=== PATIENT | female | born 1980 | race Caucasian/White ===

== ENCOUNTER → 2017-07-16 | Outpatient (CLI) | payer OTHER ==
--- NOTE | 2017-07-16 15:22 | NM ---
EXAMINATION TYPE: NM hepatobiliary w EF DATE OF EXAM: 07/16/2017 COMPARISON: NONE HISTORY: Right upper quadrant pain TECHNIQUE: After the intravenous administration of 5.5 mCi Tc 99m Mebrofenin hepatobiliary scintigrap hy is performed. Immediate images post injection. FINDINGS: There is satisfactory initial accumulation of tracer by the liver. The gallbladder is visualized wit hin 8 minutes. The small bowel activity is noted within 16 minutes. At one hour 8 ounces of oral en sure plus is given to mimic CCK and gallbladder ejection fraction is calculated at 52 %, in the vilma l range. Therefore there is no scintigraphic evidence of cystic or common bile duct obstruction to s uggest acute cholecystitis or gallbladder dyskinesia. IMPRESSION: Exam is within normal limits.
== END | disposition home or self-care (01) ==
LOC: RADNMMAIN 13:03
PROVIDERS: ATTEND Family Medicine
DX: R10.11 Right upper quadrant pain (principal)
CPT/HCPCS: 78226; A9537

== ENCOUNTER 2017-12-24 11:47 | Day surgery (SDC) | payer OTHER ==
[2017-12-21 14:41] VITALS: BMI 27.3
[~2017-12-24 11:47] MED LIST: DEXAMETHASONE SOD PHOSPHATE 10 MG/ML 1 ML VIAL IV ONE; HYDROmorphone 0.5 MG/0.5 ML SYRINGE IVP PRN; LACTATED RINGERS 1,000 ML IV SCH; MIDAZOLAM 2 MG/2 ML VIAL IV PRN; ONDANSETRON 4 MG/2 ML VIAL IVP ONE; ceFAZolin IN SWFI 2 GM/20 ML SYRINGE IVP ONE
[2017-12-24] MEDS ORDERED: SCOPOLAMINE 1.5MG/72HR PATCH TRANSDERM ONE (12:28)
[2017-12-24] MEDS ORDERED: LIDOCAINE 1% 20 ML VIAL (10MG/ML) FOR IV START INTRADERMA ONE (12:28)
[2017-12-24] MEDS ORDERED: NEOSTIGMINE 1 MG/ML 10 ML VIAL ONE (13:11)
[2017-12-24] MEDS ORDERED: ROCURONIUM BROMIDE 10 MG/ML 10 ML VIAL IV ONE (13:11)
[2017-12-24] MEDS ORDERED: HYDROmorphone (PF) 1 MG/ML ONE (13:11)
[2017-12-24] MEDS ORDERED: GLYCOPYRROLATE 0.2 MG/ML 2 ML VIAL ONE (13:11)
[2017-12-24] MEDS ORDERED: LIDOCAINE 1% INJ 10MG/ML (20 ML MDV) ONE (13:11)
[2017-12-24] MEDS ORDERED: SUCCINYLCHOLINE CHLORIDE 100 MG/5 ML SYR IV ONE (13:11)
[2017-12-24] MEDS ORDERED: PROPOFOL 10 MG/ML 20 ML VIAL IV ONE (13:11)
[2017-12-24] MEDS ORDERED: MIDAZOLAM 2 MG/2 ML VIAL ONE (13:11)
[2017-12-24] MEDS ORDERED: fentaNYL (PF) 50 MCG/ML 2 ML AMP ONE (13:11)
[2017-12-24] MEDS ORDERED: LACTATED RINGERS 1,000 ML IV ONE ×2 (15:10→15:17)
--- NOTE | 2017-12-24 15:46 | FL ---
EXAMINATION TYPE: FL guidance operating room, XR foot limited RT DATE OF EXAM: 12/24/2017 CLINICAL HISTORY: Right foot fracture. TECHNIQUE: Fluoroscopy. Intraoperative limited views right foot. COMPARISON: None. FINDINGS: Fluoroscopic guidance was provided during open reduction internal fixation procedure perfo rmed by Dr. Rodriguez. A total of 12 seconds of fluoroscopic time was utilized during the procedure a nd 2 spot intraoperative fluoroscopic images are acquired. Images acquired show placement of medial fixating plate and interstitial fixating screw through base of first metatarsal extending into medial cuneiform. Satisfactory alignment is seen on intraoperative images saved. IMPRESSION: As Above.
[2017-12-24 15:58] VITALS: TEMP 97.9
--- NOTE | 2017-12-24 16:06 | P.OP ---
Date of Procedure: 12/24/17 Preoperative Diagnosis: 1. Recurrent right hallux valgus deformity with hypermobile first ray 2. Right gastrocnemius equinus contracture Postoperative Diagnosis: Same Procedure(s) Performed: 1. Correction of right hallux valgus deformity with modified Lapidus procedure 2. Right gastrocnemius recession Anesthesia: DAVID Surgeon: Bassam Rodriguez Senior Applications Developer #1: Laly Gan Estimated Blood Loss (ml): 5 IV fluids (ml): 900 Pathology: none sent Condition: stable Disposition: PACU Indications for Procedure: The patient is a previously healthy 37-year-old female with a long-standing history of problems in both of her feet. She previously underwent operative fixation of her bunions by another provider with a medial eminence resection and proximal phalanx osteotomies. She had recurrence of her deformities and ongoing pain. She came to see me to discuss treatment. We discussed continued nonsurgical treatment versus surgery. The patient had failed over 6 months of nonsurgical treatment and requested to go forward with surgery. Due to the recurrent and hypermobile nature of her bunions I recommended correction with a modified Lapidus procedure and gastroc recession. We discussed the potential risks and complications of surgery including but not limited to risk of anesthesia risk of superficial infection risk of deep infection risk of delayed wound healing risk of damage to local blood vessels or nerves risk of nonunion of the fusion site risk of malunion of the fusion site, risk of symptomatically hardware, intraoperative fracture, risk of postoperative fracture, risk of under correction of her deformity, risk of recurrence of her deformity, risk of hallux varus, risk of chronic pain, risk of chronic swelling, generalized to satisfaction of surgery, DVT, PE, other medical complications and possibly loss of life or limb. The patient voiced understanding of this and provided her verbal and written consent to go forward with surgery. Description of Procedure: The patient was identified in preoperative holding and the correct right foot was marked with my initials. I reviewed the consent form with the patient and her significant other. All their questions were answered. The patient was then brought back to the operating room. She was positioned on the or table and a general anesthetic and preoperative antibiotics were administered. A bump was placed under the right buttock internally rotating the leg to neutral. A tourniquet was applied to the proximal aspect of the right thigh. The left leg was secured to the table with foam and tape. The right leg was then prepped and draped in the standard sterile fashion. Prior to starting surgery timeout was performed identifying the correct patient, operative extremity, and procedure. The patient's leg was then elevated, exsanguinated, and the tourniquet was inflated to 250 mmHg. I began by performing a gastroc recession. A 3 cm incision was marked out over the calf 1 thumb breadth posterior to the tibia at the distal medial muscle belly of the gastrocnemius. Skin incision was made to scalpel. Dissection was carried down With subcu pain is tissue with tenotomy scissors. The superficial fascia was identified and incised longitudinally in line with the skin incision. I believe developed interval between the gastrocnemius aponeurosis and superficial fascia. The sural nerve was identified adherent to the gastrocnemius aponeurosis and was gently teased off with a [place] elevator. I then bluntly developed interval between the gastrocnemius aponeurosis and soleus fascia. Modified right angle retractors were placed isolating the gastrocnemius aponeurosis which was then sharply transected from medial to lateral. The retractors were withdrawn and the sural nerve was seen to be intact. The wound was irrigated and then closed in layers. Attention was then turned to the foot. A longitudinal incision was centered over the dorsal midfoot between the first and second tarsometatarsal joints. Skin incision was made a 15 blade scalpel. Dissection was carried down carefully through subcutaneous tissue with tenotomy scissors. The superficial sensory nerves identified proximally in the incision and carefully retracted. The EHL tendon sheath was incised and the EHL was retracted laterally. A longitudinal capsulotomy was then made centered over the first tarsometatarsal joint. K wires were then placed in the medial cuneiform and first metatarsal base and a distractor was used to open the joint. Using a combination of straight osteotomes and curettes the articular cartilage was completely removed from the first tarsometatarsal joint taking care to remove the cartilage plantarly to avoid a dorsiflexion malunion. A small wafer of bone was taken off the lateral aspect of the medial cuneiform to help with correction. Once all of the cartilage was removed the subchondral bone was perforated with a 2.0 mm drill bit to help facilitate fusion. Attention was then turned distally. A longitudinal incision was made over the medial aspect of the first MTP joint. Dissection was carried down carefully through subcutaneous tissue and a medial capsulotomy was performed. Using a Tony a small amount of medial eminence was resected. The joint was then gently distracted and a clean 15 blade scalpel was used to release the lateral capsule to help with correction of the hallux valgus deformity. At this point the 1-2 intermetatarsal angle was corrected by applying a lateral force to the distal head of the first metatarsal. An eccentric replaced K wire was placed across the joint to help hold the reduction. I then placed a 3.5 mm lag screw in a retrograde fashion across the joint. A small bur was used to create a pocket hole 1.5 cm distal to the joint and the dorsal aspect of the first metatarsal. A 3.5 mm drill bit was used to create a gliding on the first metatarsal and a 2.5 mm drill bit was used to create a threaded hole in the medial cuneiform. A fully threaded 3.5 mm screw was placed in a retrograde fashion across the joint generating excellent compression. I then proceeded to place an antegrade lag screw across the joint. A 3.5 mm drill bit was used to create a gliding hole and the medial cuneiform and a 2.5 mm drill bit was used to create a threaded hole in the first metatarsal. As the lag screw was being brought down the medial cuneiform fractured. I then with true the lag screw and inspected the joint. The retrograde screw appeared to have adequately compressed the joint with no distraction or loosening. Fluoroscopy was brought in and showed no evidence of displacement. I then elected to use a precontoured first metatarsal plate to help stabilize the fusion. The plate was placed over the dorsomedial aspect of the joint and held in place with L of tipped K wires. Nonlocking screws were placed proximally and distally into the medial cuneiform form and first metatarsal. I then placed locking screws proximally and distally. A small aspect of the medial capsule the first MTP joint was sharply incised, the joint was irrigated and a capsulorrhaphy and imbrication was performed to reduce the hallux valgus deformity. Final fluoroscopic images were taken. On the AP view the hardware appeared to be in place and the joint was adequately compressed. The 12 intermetatarsal angle was reduced and both of the sesamoids were covered by the first metatarsal head. Clinically the hallux valgus deformity was nicely corrected. Both wounds were copiously irrigated and closed in layers. I verified that all instrument, sponge, and sharp counts were correct. A sterile dressing consisting of Betadine soaked Adaptic, 4 x 4, and web roll was applied. The drapes were taken down and a well-padded bulky Stock splint was placed with the ankle at neutral. The patient was then awoken, transferred to a gurney, and brought to PACU in stable condition. Laly Gan TONNAGE COMPILATION CLERK is required is a skilled butcher assistant for patient positioning, retraction, preparation of joint surfaces, placement of hardware, closure of wounds, and placement of splint and dressing.
[2017-12-24] MEDS ORDERED: HYDROmorphone 1 MG/ML 1 ML SYRINGE IVP ONE (16:22)
[2017-12-24] MEDS ORDERED: HYDROcodone/APAP 10-325MG 1 EACH TAB PO ONE (17:03)
[2017-12-24 17:22] VITALS: BP 120/79; PULSE 59; RESP 18
--- NOTE | 2017-12-25 10:59 | P.ONQ ---
Anesthesiology Proc Note - PNB - Peripheral Nerve Block Performed Right Popliteal Single Time Out Performed: Yes Procedure Start Time: 16:24 Procedure Stop Time: 16:29 Indication: Acute Post-Operative Pain, Requested by physician Sedation Type: Sedate with meaningful contact maintained Preparation: Sterile Prep Position: Supine Needle Size: 50mm (2") Needle Gauge: 21 Technique: Ultrasound Injectate: 0.5% Ropivacaine (see comment for volume) (ropi .5% 30cc) Blood Aspirated: No Pain Paresthesia on Injection Noted: No Resistance on Injection: Normal Events: Uneventful and Well Tolerated
== END 2017-12-24 18:12 | disposition home or self-care (01) ==
LOC: OR 11:47
PROVIDERS: ATTEND Orthopaedic Surgery
DX: M20.11 Hallux valgus (acquired), right foot (principal); M62.461 Contracture of muscle, right lower leg; M20.12 Hallux valgus (acquired), left foot; M62.462 Contracture of muscle, left lower leg; K21.9 Gastro-esophageal reflux disease without esophagitis; Z87.891 Personal history of nicotine dependence
CPT/HCPCS: 27687; 28297; 73620; 64450; C1713; J2250; J1100; J2710; J2405; J2001; J3010; J1170 ×2; J0330; J2704; J0690

== ENCOUNTER → 2018-03-04 | Day surgery (SDC) | payer OTHER ==
[2018-03-02 10:00] VITALS: BMI 28.0
[~2018-03-04] MED LIST changes: +HYDROcodone/APAP 5-325MG 1 EACH TAB PO PRN; -HYDROmorphone 0.5 MG/0.5 ML SYRINGE IVP PRN; +HYDROmorphone 1 MG/ML 1 ML SYRINGE IVP ONE; +HYDROmorphone 1 MG/ML 1 ML SYRINGE IVP PRN; +KETOROLAC 30 MG/ML 1 ML VIAL ONE; +LIDOCAINE 1% 20 ML VIAL (10MG/ML) FOR IV START INTRADERMA PRN; +LIDOCAINE 1% INJ 10MG/ML (20 ML MDV) ONE; +METOCLOPRAMIDE 5 MG/ML 2 ML VIAL IVP ONE; +MIDAZOLAM 2 MG/2 ML VIAL ONE; +ONDANSETRON 4 MG/2 ML VIAL ONE; +PROPOFOL 10 MG/ML 20 ML VIAL IV ONE; +ROPIVACAINE 5 MG/ML 30 ML VIAL ONE; +SCOPOLAMINE 1.5MG/72HR PATCH TRANSDERM ONE; +fentaNYL (PF) 50 MCG/ML 2 ML AMP IV PRN; +fentaNYL (PF) 50 MCG/ML 2 ML AMP ONE
[2018-03-04 10:50] VITALS: TEMP 98.3
--- NOTE | 2018-03-04 15:09 | FL ---
Fluoroscopy INDICATION: Pain FINDINGS: Fluoroscopy time: 2 minutes 19 seconds. Images obtained: 5. IMPRESSIONS: 1. Documentation of fluoroscopy.
--- NOTE | 2018-03-04 15:29 | P.OP ---
Date of Procedure: 03/04/18 Preoperative Diagnosis: 1. Recurrent hallux valgus, right Postoperative Diagnosis: same Procedure(s) Performed: 1. Revision Lapidus procedure, right foot 2. Removal deep hardware, right foot Anesthesia: DAVID Surgeon: Bassam Rodriguez Estimated Blood Loss (ml): 10 IV fluids (ml): 1,000 Pathology: none sent Condition: stable Disposition: PACU Indications for Procedure: The patient is a previously healthy 37-year-old female was had a long-standing history of problems with both of her feet. The patient previously had bilateral bunion surgery by podiatry with recurrent deformities. She underwent a modified Lapidus procedure by myself 2 months ago. She began weightbearing prior to being released, injuring her right leg and foot. She presented for follow-up appointment and had a recurrent deformity and her x-rays showed a widened one-two intermetatarsal angle. We discussed continued observation versus revision surgery. The patient requested revision surgery. We discussed potential risks and complications of surgery including but not limited to risk of anesthesia, risk of superficial infection, risk of deep infection, risk of nonunion of the fusion site, risk of malunion of the fusion site, risk of recurrent deformity, risk of hallux varus, risk of under correction, risk of overcorrection, risk of shortening of the first metatarsal, risk of damage to local blood vessels or nerves, risk of generalized to satisfaction with surgery , risk of DVT, risk of PE, and possibly loss of life or limb. The patient voiced her understanding of all of this and provided her verbal and written consent to go forward with surgery. Description of Procedure: The patient was identified in preoperative holding and the right leg was marked with my initials. I reviewed the consent form with the patient and her . All of their questions were answered. The patient was then given a popliteal and saphenous nerve block by anesthesia. She was then brought back to the operating room positioned on an or table where general anesthetic and preoperative antibiotics were administered. The right leg was then prepped and draped in standard sterile fashion after tourniquet was applied the proximal aspect of the right leg. Prior to starting surgery timeout was performed identifying the correct patient, operative extremity, and procedure. The patient's leg was then elevated, exsanguinated with an Esmarch bandage, and the tourniquet was inflated to 250 mmHg. I began by making an incision through her scar over the dorsal aspect of the first TMT joint. Skin incision was made with a scalpel and dissection was carried down carefully to the sheath over the EHL tendon was incised longitudinally. The EHL was retracted laterally and the capsule over the plate and first TMT joint was sharply elevated. The plate and screws were removed and the lag screw outside of the plate was also removed and passed off to the back table. The fusion of the first tarsometatarsal joint appeared to be solid. A 1/4 inch straight osteotome was used to open up the fusion site. The fusion site was opened and adhesions were released. A small stab incision was made in the first webspace just lateral to the first MTP joint. A lateral release was performed of the capsule. A joystick K wire was then placed into the base of the first metatarsal 1 cm distal to the joint. Fluoroscopy was used to verify that the one-two intermetatarsal angle could be reduced and that the metatarsal head would cover the sesamoids. I then placed the fulcrum between the base of the first and second metatarsals. A small stab incision was made over the lateral aspect of the midshaft of the second metatarsal. The custom one-two intermetatarsal reduction tool was placed and tightened closing down the one-two intermetatarsal angle. A K wire was placed through the reduction tool. The joint finder was placed down the lateral aspect of the joint. The custom cutting jig was placed over the joint finder and pinned in place. A small saw was used to remove bone from the base of the first metatarsal and the medial cuneiform. The cutting jig was removed and a pin was left in the metatarsal and cuneiform. The custom distraction/compression jig was placed over the pin and the joint was distracted. Cut bone was removed. The subchondral bone was then perforated with a 2.0 mm drill bit. The K wire was removed through the one-two intermetatarsal reduction tool. The compression device was then gently tightened nicely opposing the cut surfaces. Fluoroscopy was then brought in to verify reduction of the one-two intermetatarsal angle. At this point a cannulated lag screw was placed from the lateral base of the first metatarsal into the medial cuneiform. 4 hole plates were then placed dorsolaterally and medially according to the rn document improvement's technique. Final fluoroscopic images were taken which showed reduction of the one-two intermetatarsal angle and hallux valgus angle. Hardware was in place. Bone from the cut surfaces was then morselized and placed in the screw tracks from the prior fixation. The wounds were then closed in layers. The tourniquet was let down. A sterile dressing was applied followed by a bulky Stock splint. The patient was awoken from her anesthetic, transferred to a gurney, and brought to PACU without of the procedure well.
[2018-03-04 15:34] VITALS: RESP 16
[2018-03-04 16:06] VITALS: BP 113/79; PULSE 72
--- NOTE | 2018-03-09 14:56 | CDI ---
Outpatient Documentation Clarification Form Date: 03/09/18 CDS/Otter Trawler Boatswain Name: Radha Elliott Phone: If any questions, call Cristal Hernandez Airport Location Manager at [phone] Patient Name: Tessie Liriano Admit Date: 03/04/18 Discharge Date: 03/04/18 ATTENTION: The [facility] Coding Staff appreciate your assistance in clarifying documentation. Please respond to the clarification below the line at the bottom and electronically sign. The [facility] Coding staff will review the response and follow-up if needed. Please note: Queries are made part of the Legal Health Record. If you have any questions, please contact the Airport Location Manager. Dear Dr. Rodriguez What was the purpose of the popliteal & saphenous nerve block? Was it for post- op pain management, or other? Thank you for your kind consideration. Pain management MTDD
== END | disposition home or self-care (01) ==
LOC: OR 10:11
PROVIDERS: ATTEND Orthopaedic Surgery
DX: M20.11 Hallux valgus (acquired), right foot (principal); Z91.19 Patient's noncompliance with other medical treatment and regimen; Z98.1 Arthrodesis status; E78.5 Hyperlipidemia, unspecified; E07.9 Disorder of thyroid, unspecified; K21.9 Gastro-esophageal reflux disease without esophagitis; Z79.891 Long term (current) use of opiate analgesic; Z87.891 Personal history of nicotine dependence
CPT/HCPCS: 28297; 73620; 64450; C1713; J2250; J1100; J2765; J2405; J2001; J3010; J1885; J1170; J2795; J2704

== ENCOUNTER 2018-06-01 09:29 | Day surgery (SDC) | payer OTHER ==
[2018-05-31 08:25] VITALS: BMI 28.8
[~2018-06-01 09:29] MED LIST changes: -HYDROcodone/APAP 5-325MG 1 EACH TAB PO PRN; -HYDROmorphone 1 MG/ML 1 ML SYRINGE IVP ONE; -HYDROmorphone 1 MG/ML 1 ML SYRINGE IVP PRN; -KETOROLAC 30 MG/ML 1 ML VIAL ONE; -LIDOCAINE 1% INJ 10MG/ML (20 ML MDV) ONE; -METOCLOPRAMIDE 5 MG/ML 2 ML VIAL IVP ONE; -MIDAZOLAM 2 MG/2 ML VIAL ONE; -ONDANSETRON 4 MG/2 ML VIAL ONE; -PROPOFOL 10 MG/ML 20 ML VIAL IV ONE; +Pre Op ABX Message 1 EACH MISC MISCELLANE ONE; -ROPIVACAINE 5 MG/ML 30 ML VIAL ONE; -ceFAZolin IN SWFI 2 GM/20 ML SYRINGE IVP ONE; -fentaNYL (PF) 50 MCG/ML 2 ML AMP IV PRN; -fentaNYL (PF) 50 MCG/ML 2 ML AMP ONE
[2018-06-01 11:43] VITALS: RESP 16
[2018-06-01] MEDS ORDERED: MIDAZOLAM 2 MG/2 ML VIAL IVP ONE (12:03)
[2018-06-01] MEDS ORDERED: fentaNYL (PF) 50 MCG/ML 2 ML AMP IVP ONE ×2 (12:03→12:12)
[2018-06-01] MEDS ORDERED: ceFAZolin IN SWFI 2 GM/20 ML SYRINGE IVP ONE (12:15)
--- NOTE | 2018-06-01 12:30 | P.ONQ ---
Anesthesiology Proc Note - PNB - Peripheral Nerve Block Performed Left Saphenous/Obturator Single Procedure Start Time: 12:02 Procedure Stop Time: 12:10 Indication: Analgesia, Requested by physician Specifically requested for management of pain by DrAileen: Bassam Rodriguez Sedation Type: Sedate with meaningful contact maintained Preparation: Sterile Prep Position: Supine Needle Size: 100mm (4") Needle Gauge: 21 Technique: Ultrasound (Ropivacaine 0.375) Injectate: Other (see comment) (0.375 % 20 ml) Blood Aspirated: No Pain Paresthesia on Injection Noted: No Resistance on Injection: Normal Events: Uneventful and Well Tolerated
--- NOTE | 2018-06-01 12:31 | P.ONQ ---
Anesthesiology Proc Note - PNB - Peripheral Nerve Block Performed Left Popliteal Single Procedure Start Time: 12:10 Procedure Stop Time: 12:20 Indication: Analgesia, Requested by physician Specifically requested for management of pain by DrAileen: Bassam Rodriguez Sedation Type: Sedate with meaningful contact maintained Preparation: Sterile Prep Needle Types: On-Q Needle Size: 100mm (4") Needle Gauge: 21 Technique: Ultrasound (Ropivacaine 0.375 % 20 ml) Blood Aspirated: No Pain Paresthesia on Injection Noted: No Resistance on Injection: Normal Events: Uneventful and Well Tolerated
[2018-06-01] MEDS ORDERED: ALBUTEROL INHALER 60 PUFF/8 GM INHALER INHALATION ONE (13:44)
[2018-06-01] MEDS ORDERED: MIDAZOLAM 2 MG/2 ML VIAL ONE (13:44)
[2018-06-01] MEDS ORDERED: LIDOCAINE 1% INJ 10MG/ML (20 ML MDV) ONE (13:44)
[2018-06-01] MEDS ORDERED: fentaNYL (PF) 50 MCG/ML 2 ML AMP ONE (13:44)
[2018-06-01] MEDS ORDERED: HYDROmorphone (PF) 1 MG/ML ONE (13:44)
[2018-06-01] MEDS ORDERED: ePHEDrine 50 MG/ML 1 ML AMP ONE (13:44)
[2018-06-01] MEDS ORDERED: PHENYLEPHRINE-0.9% NACL SYG 1 MG/10 ML SYRINGE ONE (13:44)
[2018-06-01] MEDS ORDERED: PROPOFOL 10 MG/ML 20 ML VIAL IV ONE (13:44)
[2018-06-01] MEDS ORDERED: LACTATED RINGERS 1,000 ML IV ONE ×2 (14:59)
[2018-06-01] MEDS ORDERED: diphenhydrAMINE 50 MG CAP PO PRN (16:05)
[2018-06-01] MEDS ORDERED: HYDROmorphone 1 MG/ML 1 ML SYRINGE IVP PRN (16:05)
[2018-06-01] MEDS ORDERED: ONDANSETRON 4 MG/2 ML VIAL IVP PRN (16:05)
[2018-06-01] MEDS ORDERED: HYDROcodone/APAP 5-325MG 1 EACH TAB PO PRN ×2 (16:05)
--- NOTE | 2018-06-01 16:05 | P.OP ---
Date of Procedure: 06/01/18 Preoperative Diagnosis: 1. Recurrent left hallux valgus 2. 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 Left recurrent hallux valgus correction with modified Lapidus procedure 2. Correction of left second toe deformity with middle phalangeal osteotomy and DIP fusion Anesthesia: bob HERNANDEZ Surgeon: Bassam Rodriguez Regional Production Manager #1: Shawn Mejia Estimated Blood Loss (ml): 10 IV fluids (ml): 1,200 Pathology: none sent Condition: stable Disposition: PACU Indications for Procedure: The patient is a very pleasant 37-year-old female who previously underwent revision hallux valgus surgery on her right foot with me and did well. She continued to have problems with her left foot and requested surgery. She also had deformity of the left second toe. She had failed a long course of nonsurgical treatment. She did well with surgery on her right foot and requested similar procedure. The patient understands the potential risks and complications of surgery including but not limited to risk of anesthesia, risk of superficial infection, deep infection, delayed wound healing, superficial necrosis, damage to local blood vessels or nerves, nonunion of the fusion site, malunion to the fusion site, over correction of her deformity, under correction of her deformity, recurrence, hallux varus, ongoing or worsened pain, need for further surgery, systematic hardware, DVT, PE and possibly loss of life or limb. The patient voiced her understanding of this and provided her verbal and written consent to go forward with surgery. Description of Procedure: The patient was identified in preoperative holding and the correct left leg was marked my initials. I reviewed the consent form with the patient and her . All their questions were answered. A popliteal and saphenous nerve block was placed by anesthesia. The patient was then brought back to the operating room by anesthesia. She was positioned on an or table where general anesthetic and preoperative antibiotics were administered. All bony prominences were well-padded. A tourniquet was applied to the proximal aspect of the left thigh. The left leg was then prepped and draped in standard sterile fashion. Prior to starting surgery timeout was performed identifying the correct patient operative extremity and procedure. The patient's leg was then elevated, exsanguinated with an Esmarch bandage, and the tourniquet was inflated to 250 mmHg. I began by outlining a dorsal incision in the first interspace centered over the first tarsometatarsal joint. Skin incision was made a scalpel and dissection was carried down carefully through subcu tissues tissue with tenotomy scissors. The EHL tendon sheath was identified, incised and the EHL tendon was carefully retracted. I sharply elevated the periosteum over the medial cuneiform and first metatarsal. Attention was then turned distally to the first webspace. A 1 inch incision was made in the webspace and dissection was carried down carefully to the lateral aspect of the MTP joint. A lateral release of the MTP joint capsule and suspensory sesamoid ligament was performed. A varus force was applied to the toe. Attention was then turned back to the midfoot. A saw was used to remove the plantar flare of the first metatarsal base to facilitate rotation. A K wire was then placed 1 cm distal to the joint and the base of the first metatarsal. The pin was gently rotated and a gentle force was applied to the distal first metatarsal. I was able to almost completely a stab incision was then made between the shafts of the second and third metatarsals. An intermetatarsal reduction clamp was placed with 1 yefri of the clamp against the lateral cortex of the second metatarsal. A fulcrum was placed at the lateral base of the first metatarsal I gently rotated the metatarsal and tight in the clamp against the medial cortex of the first metatarsal. Fluoroscopy was used to verify the reduction in both an AP and lateral plane. The intermetatarsal guide was then pinned. The joint finder was then placed on the lateral aspect of the first tarsometatarsal joint. The cutting guide was placed over the keel of the joint finder and the cutting guide was pinned into place. The joint seeker was removed and I verified the level of resection. A small microsagittal saw was used to remove bone from the base of the first metatarsal and medial cuneiform. The pin from the intermetatarsal guide was removed and the guide was then gently removed. The cutting guide was removed. A compressor distractor was placed over the pins and the first tarsal metatarsal joint was opened. The cut surfaces were removed. There was a small amount of remaining cartilage at the medial aspect of the medial cuneiform which was removed with a curet. The joint was copiously irrigated. Using a 2.0 mm drill bit both surfaces were perforated with the drill 8-10 times to facilitate fusion. The joint was then compressed. Fluoroscopy was used to verify that the bony surfaces were adequately compressed and the metatarsal straight. On the AP view the sesamoids appeared to be reduced under the first metatarsal. Clinically the toe appeared straight. I then placed a K wire on the lateral cortex of the proximal first metatarsal. A partially threaded cannulated screw was placed in an excellent compression across the joint. A dorsal locking plate was placed over the dorsal lateral aspect of the joint with locking screws placed proximally and distally. A second plate was placed medially at 90 to the purse plate. Final fluoroscopic images were taken showing reduction of the intermetatarsal angle and coverage of the sesamoids. The joint appeared to be compressed with the hardware in adequate position. Attention was then turned to the second toe. A longitudinal incision was made centered over the second toe. The extensor mechanism sharply elevated over the DIP joint. Skin hooks were placed. A small microsagittal saw was used to remove a wedge of bone from the middle phalanx taking more bone medially. A curet was used to remove bone from the base of the distal phalanx. The joint was copiously irrigated. With removal of the closing wedge of bone I was able to reduce the deformity. Was held reduced and a 65 K wire was driven through the tip of the toe across the DIP joint and into the proximal phalanx. Final fluoroscopic images were taken showing correction of the second toe deformity and hallux valgus deformity. Both wounds were copiously irrigated and closed in layers. A sterile dressing consisting of Betadine to the Adaptic 4 x 4, and web roll was applied. The patient was then awoken from her anesthetic, transferred to a gurwaverly, and brought to PACU procedure well. Shawn Mejia PAC was required as a skilled emergency room physician assistant for patient positioning, surgical exposure, retraction, placement of hardware, closure of wounds, application of dressing.
[2018-06-01] MEDS: HYDROmorphone 0.5 MG/0.5 ML SYRINGE IVP PRN ×4 (16:10→16:38)
[2018-06-01] MEDS ORDERED: LACTATED RINGERS 1,000 ML IV SCH (16:15)
[2018-06-01] MEDS ORDERED: PROMETHAZINE INJ 25 MG/ML 1 ML VIAL IVPB ONE (16:16)
[2018-06-01 16:25] VITALS: TEMP 97.6
--- NOTE | 2018-06-01 16:38 | XR ---
EXAMINATION TYPE: XR foot limited LT, FL guidance operating room DATE OF EXAM: 06/01/2018 COMPARISON: NONE HISTORY: 37-year-old female hardware placement FINDINGS: Images during hardware placement along the first TMT joint. Additional hammertoe correction of the se cond toe is demonstrated. FLUOROSCOPY Fluoroscopy time of 2 minutes 8 seconds was used during hardware placement in the left forefoot. 7 i mage/s document/s the procedure. IMPRESSION: Intraoperative fluoroscopy as above.
[2018-06-01 17:05] VITALS: BP 106/68
[2018-06-01 17:29] VITALS: PULSE 105
== END 2018-06-01 17:53 | disposition home or self-care (01) ==
LOC: OR 09:29
PROVIDERS: ATTEND Orthopaedic Surgery
DX: M20.12 Hallux valgus (acquired), left foot (principal); M20.62 Acquired deformities of toe(s), unspecified, left foot; M20.42 Other hammer toe(s) (acquired), left foot; Z79.891 Long term (current) use of opiate analgesic; Z87.891 Personal history of nicotine dependence
CPT/HCPCS: 28297; 28899; 64450; 64447; 81025; 73620; C1713; J2250; J1100; J2550; J2405; J2001; J3010; J1170 ×2; J2370; J2704; J0690; 64493

== ENCOUNTER → 2018-11-03 | Outpatient (CLI) | payer OTHER ==
--- NOTE | 2018-11-03 14:28 | US ---
EXAMINATION TYPE: US venous doppler duplex LE LT DATE OF EXAM: 11/03/2018 2:17 PM COMPARISON: NONE CLINICAL HISTORY: I80.9 PHLEBITIS AND THROMBOPHLEBITIS. SIDE PERFORMED: LEFT TECHNIQUE: The lower extremity deep venous system is examined utilizing real time linear array sonog sonal with graded compression, doppler sonography and color-flow sonography. VESSELS IMAGED: External Iliac Vein (EIV) Common Femoral Vein Deep Femoral Vein Greater Saphenous Vein * Femoral Vein Popliteal Vein Small Saphenous Vein * Proximal Calf Veins (* superficial vessels) Left Leg: Negative for DVT Grayscale, color doppler, spectral doppler imaging performed of the deep veins of the left lower extr emity. There is normal flow, compressibility, vascular waveforms. IMPRESSION: No ultrasound evidence for acute DVT in the left lower extremity.
== END | disposition home or self-care (01) ==
LOC: RADUSWWP 13:55
PROVIDERS: ATTEND Orthopaedic Surgery
DX: M79.672 Pain in left foot (principal); I80.9 Phlebitis and thrombophlebitis of unspecified site; M84.375A Stress fracture, left foot, initial encounter for fracture; R60.9 Edema, unspecified; Z48.89 Encounter for other specified surgical aftercare
CPT/HCPCS: 82306

== ENCOUNTER 2020-09-16 10:22 | Emergency (ER) | payer OTHER ==
[2020-09-16 10:30] VITALS: TEMP 97.7
[2020-09-16] MEDS ORDERED: SODIUM CHLORIDE 0.9% 500 ML 500 ML IV STA (10:42)
--- NOTE | 2020-09-16 10:49 | ED ---
General Adult HPI - General Chief complaint: Arrhythmia/Palpitations Stated complaint: HEART PALPATIONS Time Seen by Provider: 09/16/20 10:25 Source: patient, RN notes reviewed, old records reviewed Mode of arrival: ambulatory Limitations: no limitations - History of Present Illness Initial comments: This is a 39-year-old female presents emergency Department complaining that she woke up this morning at 2 AM with palpitations. Patient states they've been ongoing ever since patient patient states in the past she's had one to palpitations here there but never like this. Patient states he continues to happen and it occasionally stops but it is been ongoing most of the morning. Patient denies any chest pain patient denies any difficulty breathing shortness of breath. Patient denies any lightheadedness or dizziness. Patient denies any recent fever chills or cough. Patient states she did drink quite a bit this weekend but she typically drinks on the weekends. Patient denies any drug use. Patient states she has been on Adipex for the last 2 months. - Related Data Home Medications Medication Instructions Recorded Confirmed Phentermine HCl 37.5 mg PO AC-BRKFST 09/16/20 09/16/20 Allergies Allergy/AdvReac Type Severity Reaction Status Date / Time No Known Allergies Allergy Verified 09/16/20 11:41 Review of Systems ROS Statement: Those systems with pertinent positive or pertinent negative responses have been documented in the HPI. ROS Other: All systems not noted in ROS Statement are negative. Past Medical History Past Medical History: GERD/Reflux, Hyperlipidemia, Thyroid Disorder Additional Past Medical History / Comment(s): no meds for thyroid or hyper lipidemia History of Any Multi-Drug Resistant Organisms: None Reported Past Surgical History: Orthopedic Surgery Additional Past Surgical History / Comment(s): Bunionectomy R foot X2; nasal polyp removed, Past Anesthesia/Blood Transfusion Reactions: Motion Sickness Past Psychological History: No Psychological Hx Reported Smoking Status: Never smoker Past Alcohol Use History: Occasional Past Drug Use History: Marijuana - Past Family History Mother Family Medical History: No Reported History Father Family Medical History: Cancer Additional Family Medical History / Comment(s): Lung cancer. General Exam - General Exam Comments Initial Comments: GENERAL: Patient is well-developed and well-nourished. Patient is nontoxic and well- hydrated and is in mild distress. ENT: Neck is soft and supple. No significant lymphadenopathy is noted. Oropharynx is clear. Moist mucous membranes. Neck has full range of motion without eliciting any pain. EYES: The sclera were anicteric and conjunctiva were pink and moist. Extraocular movements were intact and pupils were equal round and reactive to light. Eyelids were unremarkable. PULMONARY: Unlabored respirations. Good breath sounds bilaterally. No audible rales rhonchi or wheezing was noted. CARDIOVASCULAR: There is a regular rate and rhythm without any murmurs gallops or rubs. ABDOMEN: Soft and nontender with normal bowel sounds. SKIN: Skin is clear with no lesions or rashes and otherwise unremarkable. NEUROLOGIC: Patient is alert and oriented x3. Cranial nerves II through XII are grossly intact. Motor and sensory are also intact. Normal speech, volume and content. Symmetrical smile. MUSCULOSKELETAL: Normal extremities with adequate strength and full range of motion. LYMPHATICS: No significant lymphadenopathy is noted PSYCHIATRIC: Normal psychiatric evaluation. Limitations: no limitations Course Vital Signs 09/16/20 09/16/20 09/16/20 10:28 10:45 11:01 Temperature 97.7 F Pulse Rate 83 78 78 Respiratory 20 18 Rate Blood Pressure 138/100 136/108 128/110 O2 Sat by Pulse 100 98 Oximetry 09/16/20 09/16/20 11:40 12:06 Temperature Pulse Rate 71 Respiratory 18 Rate Blood Pressure 142/92 120/89 O2 Sat by Pulse 98 Oximetry Medical Decision Making - Medical Decision Making EKG shows sinus rhythm with occasional PVCs at 64 bpm ID interval 158 QRS is 72 QT interval 386 QTC is 398. Patient's EKG shows no ST segment elevation or depression. Patient experienced more palpitations in the emergency department every time she had an event I looked on the monitor and it showed a PVC. - Lab Data Result diagrams: 09/16/20 10:55 09/16/20 10:55 Lab Results 09/16/20 09/16/20 09/16/20 Range/Units 10:55 10:55 10:55 WBC 7.8 (3.8-10.6) k/uL RBC 4.49 (3.80-5.40) m/uL Hgb 15.1 (11.4-16.0) gm/dL Hct 44.4 (34.0-46.0) % MCV 99.0 (80.0-100.0) fL MCH 33.7 (25.0-35.0) pg MCHC 34.0 (31.0-37.0) g/dL RDW 13.3 (11.5-15.5) % Plt Count 264 (150-450) k/uL MPV 7.4 Neutrophils % 66 % Lymphocytes % 24 % Monocytes % 4 % Eosinophils % 5 % Basophils % 1 % Neutrophils # 5.1 (1.3-7.7) k/uL Lymphocytes # 1.9 (1.0-4.8) k/uL Monocytes # 0.3 (0-1.0) k/uL Eosinophils # 0.4 (0-0.7) k/uL Basophils # 0.1 (0-0.2) k/uL PT 9.5 (9.0-12.0) sec INR 0.9 (<1.2) APTT 23.9 (22.0-30.0) sec Sodium (137-145) mmol/L Potassium (3.5-5.1) mmol/L Chloride (98-107) mmol/L Carbon Dioxide (22-30) mmol/L Anion Gap mmol/L BUN (7-17) mg/dL Creatinine (0.52-1.04) mg/dL Est GFR (CKD-EPI)AfAm (>60 ml/min/1.73 sqM) Est GFR (CKD-EPI)NonAf (>60 ml/min/1.73 sqM) Glucose (74-99) mg/dL Calcium (8.4-10.2) mg/dL Magnesium (1.6-2.3) mg/dL Total Bilirubin (0.2-1.3) mg/dL AST (14-36) U/L ALT (4-34) U/L Alkaline Phosphatase (38-126) U/L Troponin I (0.000-0.034) ng/mL Total Protein (6.3-8.2) g/dL Albumin (3.5-5.0) g/dL Urine Opiates Screen Not Detected (NotDetected) Ur Oxycodone Screen Not Detected (NotDetected) Urine Methadone Screen Not Detected (NotDetected) Ur Propoxyphene Screen Not Detected (NotDetected) Ur Barbiturates Screen Not Detected (NotDetected) U Tricyclic Antidepress Not Detected (NotDetected) Ur Phencyclidine Scrn Not Detected (NotDetected) Ur Amphetamines Screen Not Detected (NotDetected) U Methamphetamines Scrn Not Detected (NotDetected) U Benzodiazepines Scrn Not Detected (NotDetected) Urine Cocaine Screen Not Detected (NotDetected) U Marijuana (THC) Screen Detected H (NotDetected) 09/16/20 09/16/20 Range/Units 10:55 10:55 WBC (3.8-10.6) k/uL RBC (3.80-5.40) m/uL Hgb (11.4-16.0) gm/dL Hct (34.0-46.0) % MCV (80.0-100.0) fL MCH (25.0-35.0) pg MCHC (31.0-37.0) g/dL RDW (11.5-15.5) % Plt Count (150-450) k/uL MPV Neutrophils % % Lymphocytes % % Monocytes % % Eosinophils % % Basophils % % Neutrophils # (1.3-7.7) k/uL Lymphocytes # (1.0-4.8) k/uL Monocytes # (0-1.0) k/uL Eosinophils # (0-0.7) k/uL Basophils # (0-0.2) k/uL PT (9.0-12.0) sec INR (<1.2) APTT (22.0-30.0) sec Sodium 136 L (137-145) mmol/L Potassium 3.9 (3.5-5.1) mmol/L Chloride 99 (98-107) mmol/L Carbon Dioxide 25 (22-30) mmol/L Anion Gap 12 mmol/L BUN 13 (7-17) mg/dL Creatinine 0.90 (0.52-1.04) mg/dL Est GFR (CKD-EPI)AfAm >90 (>60 ml/min/1.73 sqM) Est GFR (CKD-EPI)NonAf 82 (>60 ml/min/1.73 sqM) Glucose 107 H (74-99) mg/dL Calcium 10.9 H (8.4-10.2) mg/dL Magnesium 1.8 (1.6-2.3) mg/dL Total Bilirubin 0.9 (0.2-1.3) mg/dL AST 83 H (14-36) U/L ALT 87 H (4-34) U/L Alkaline Phosphatase 89 (38-126) U/L Troponin I <0.012 (0.000-0.034) ng/mL Total Protein 8.2 (6.3-8.2) g/dL Albumin 4.8 (3.5-5.0) g/dL Urine Opiates Screen (NotDetected) Ur Oxycodone Screen (NotDetected) Urine Methadone Screen (NotDetected) Ur Propoxyphene Screen (NotDetected) Ur Barbiturates Screen (NotDetected) U Tricyclic Antidepress (NotDetected) Ur Phencyclidine Scrn (NotDetected) Ur Amphetamines Screen (NotDetected) U Methamphetamines Scrn (NotDetected) U Benzodiazepines Scrn (NotDetected) Urine Cocaine Screen (NotDetected) U Marijuana (THC) Screen (NotDetected) Disposition Clinical Impression: PVC (premature ventricular contraction) Disposition: HOME SELF-CARE Condition: Good Instructions (If sedation given, give patient instructions): Premature Ventricular Contractions (ED) Is patient prescribed a controlled substance at d/c from ED?: No Referrals: Kee Lanier MD [Primary Care Provider] - 1-2 days Time of Disposition: 12:26
[2020-09-16 11:13] VITALS: RESP 18
[2020-09-16 11:15] LABS: Basophils # (A) 0.1 k/uL (0-0.2); Basophils % (A) 1 %; Eosinophils # (A) 0.4 k/uL (0-0.7); Eosinophils % (A) 5 %; HCT 44.4 % (34.0-46.0); HGB 15.1 gm/dL (11.4-16.0); Lymphocytes # (A) 1.9 k/uL (1.0-4.8); Lymphocytes % (A) 24 %; MCH 33.7 pg (25.0-35.0); Mean Platelet Volume 7.4; Monocytes # (A) 0.3 k/uL (0-1.0); Monocytes % (A) 4 %; Neutrophils # (A) 5.1 k/uL (1.3-7.7); Neutrophils % (A) 66 %; Platelet Count 264 k/uL (150-450); RBC 4.49 m/uL (3.80-5.40); RDW 13.3 % (11.5-15.5); WBC 7.8 k/uL (3.8-10.6)
[2020-09-16 11:26] LABS: INR 0.9 (<1.2); Partial Thromboplastin Time 23.9 sec (22.0-30.0); Prothrombin Time 9.5 sec (9.0-12.0)
[2020-09-16 11:30] LABS: ALT 87 U/L (4-34); AST 83 U/L (14-36); African American GFR (CKD) >90 (>60 ml/min/1.73 sqM); Albumin 4.8 g/dL (3.5-5.0); Alkaline Phosphatase 89 U/L (38-126); Anion Gap 12 mmol/L; Blood Urea Nitrogen 13 mg/dL (7-17); Calcium 10.9 mg/dL (8.4-10.2); Carbon Dioxide 25 mmol/L (22-30); Chloride 99 mmol/L (98-107); Glucose 107 mg/dL (74-99); Magnesium 1.8 mg/dL (1.6-2.3); Non-African American GFR(CKD) 82 (>60 ml/min/1.73 sqM); Potassium 3.9 mmol/L (3.5-5.1); Sodium 136 mmol/L (137-145); Total Bilirubin 0.9 mg/dL (0.2-1.3); Total Protein 8.2 g/dL (6.3-8.2)
[2020-09-16 11:35] LABS: Amphetamine Screen,Urine Not Detected (NotDetected); Barbiturate Screen,Urine Not Detected (NotDetected); Benzodiazepines Screen,Urine Not Detected (NotDetected); Cocaine Screen,Urine Not Detected (NotDetected); Methadone Screen, Urine Not Detected (NotDetected); Opiate Screen,Urine Not Detected (NotDetected); Oxycodone Screen, Urine Not Detected (NotDetected); Phencyclidine Screen,Urine Not Detected (NotDetected); Tricyclic Antidepressant,Urine Not Detected (NotDetected); Urn Cannabinoid Scrn Detected (NotDetected)
--- NOTE | 2020-09-16 12:13 | XR ---
EXAMINATION TYPE: XR chest 2V DATE OF EXAM: 09/16/2020 COMPARISON: None INDICATION: Dysrhythmia heart palpitations TECHNIQUE: Frontal and lateral views of the chest are obtained. FINDINGS: The heart size is normal. The pulmonary vasculature is normal. The lungs are clear. IMPRESSION: 1. No acute pulmonary process.
[2020-09-16 12:41] VITALS: BP 124/93; PULSE 81
== END 2020-09-16 12:41 | disposition home or self-care (01) ==
LOC: EC 10:22
DX: I49.3 Ventricular premature depolarization (principal)
CPT/HCPCS: 36415; 71046; 80053; 80306; 83735; 84484; 85025; 85610; 85730; 93005; 96360; 99285

== ENCOUNTER → 2020-10-02 | Outpatient (CLI) | payer OTHER ==
[2020-10-02 13:50] LABS: T4, Free (Free Thyroxine) 0.82 ng/dL (0.78-2.19)
== END | disposition home or self-care (01) ==
LOC: LABWHC1 11:55
PROVIDERS: ATTEND Internal Medicine Interventional Cardiology
DX: E05.90 Thyrotoxicosis, unspecified without thyrotoxic crisis or storm (principal); R00.2 Palpitations
CPT/HCPCS: 36415; 84439; 84443

== ENCOUNTER → 2024-09-12 | Outpatient (CLI) | payer BC ==
--- NOTE | 2024-09-12 15:11 | MM ---
Reason for Exam: Screening (asymptomatic). Baseline mammogram. Patient History: Menarche at age 18. First Full-Term at age 28. Patient used Hormonal Contraceptives for 10 years. Last menstrual period: 08/17/2024 Risk Values: Brii 5 year model risk: 0.6%. NCI Lifetime model risk: 10.1%. Prior Study Comparison: Patient's first Mammogram. Tissue Density: The breasts are heterogeneously dense, which may obscure small masses. Findings: Analyzed By CAD. There is no suspicious group of microcalcifications or suspicious mass in either breast. Overall Assessment: Negative, BI-RAD 1 Management: Screening Mammogram of both breasts in 1 year. Some Advise annual bilateral breast ultrasound surveillance in patient with background dense tissue. Patient should continue monthly self-breast exams. A clinical breast exam by your physician is recommended on an annual basis. This exam should not preclude additional follow-up of suspicious palpable abnormalities. Note on Brii scores and lifetime risk: 1. A Brii score greater than 3% is considered moderate risk. If this is the case, consider specialist referral to assess eligibility for a risk reducing agent. 2. If overall lifetime risk for the development of breast cancer is 20% or higher, the patient may qualify for future screening with alternating mammogram and breast MRI. [facility], , 09/12/2024 3:08 PM. Electronically signed and approved by: Anshu Leal M.D.
== END | disposition home or self-care (01) ==
LOC: RADMAMWWP 14:35
PROVIDERS: ATTEND Family Medicine
DX: Z12.31 Encounter for screening mammogram for malignant neoplasm of breast (principal); R92.333 Mammographic heterogeneous density, bilateral breasts; Z92.0 Personal history of contraception
CPT/HCPCS: 77063; 77067